=== PATIENT | male | born 1985 | race Caucasian/White ===

== ENCOUNTER 2021-01-24 22:39 | Emergency (ER) | payer OTHER ==
[2021-01-24 22:52] VITALS: RESP 18
--- NOTE | 2021-01-24 23:16 | ED ---
URI HPI - General Chief Complaint: Upper Respiratory Infection Stated Complaint: Chest Tightness Time Seen by Provider: 01/24/21 23:00 Source: patient, RN notes reviewed Mode of arrival: ambulatory Limitations: no limitations - History of Present Illness Initial Comments: Patient is a 35-year-old male that presents to emergency department complaining of upper respiratory tract symptoms past one. He notes that his daughter is Covid-positive and has gotten exposed. He noted that he was having cough congestion and some chest tightness and shortness of breath throughout the day today. Patient was otherwise well-appearing 35-year-old male in no apparent distress or pain. He denied any headache nausea vomiting diarrhea constipation fever fatigue chills. - Related Data Home Medications Medication Instructions Recorded Confirmed No Known Home Medications 01/24/21 01/24/21 Allergies Allergy/AdvReac Type Severity Reaction Status Date / Time No Known Allergies Allergy Verified 01/24/21 23:23 Review of Systems ROS Statement: Those systems with pertinent positive or pertinent negative responses have been documented in the HPI. ROS Other: All systems not noted in ROS Statement are negative. Past Medical History Past Medical History: No Reported History History of Any Multi-Drug Resistant Organisms: None Reported Past Surgical History: No Surgical Hx Reported Past Psychological History: No Psychological Hx Reported Smoking Status: Current every day smoker Past Alcohol Use History: None Reported Past Drug Use History: None Reported General Exam Limitations: no limitations General appearance: alert, in no apparent distress Head exam: Present: atraumatic, normocephalic, normal inspection Eye exam: Present: normal appearance, PERRL, EOMI. Absent: scleral icterus, conjunctival injection, periorbital swelling Neck exam: Present: normal inspection Respiratory exam: Present: normal lung sounds bilaterally. Absent: respiratory distress, wheezes, rales, rhonchi, stridor Cardiovascular Exam: Present: regular rate, normal rhythm, normal heart sounds. Absent: systolic murmur, diastolic murmur, rubs, gallop, clicks GI/Abdominal exam: Present: soft, normal bowel sounds. Absent: distended, t enderness, guarding, rebound, rigid Extremities exam: Present: normal inspection, full ROM, normal capillary refill. Absent: tenderness, pedal edema, joint swelling, calf tenderness Neurological exam: Present: alert, oriented X3 Psychiatric exam: Present: normal affect, normal mood Skin exam: Present: warm, dry, intact, normal color. Absent: rash Course Vital Signs 01/24/21 01/24/21 22:49 23:35 Temperature 99.5 F Pulse Rate 87 Respiratory 18 18 Rate Blood Pressure 128/77 O2 Sat by Pulse 99 Oximetry Medical Decision Making - Medical Decision Making 35-year-old male complaining of upper respiratory tract symptoms after being exposed to a Covid-positive person. Covid swab, chest x-ray ordered. Vital signs stable Patient did that he is not vaccinated for Covid Covid test positive. Chest x-ray negative for any acute cardiopulmonary process. Patient was informed that he meets criteria undergo monoclonal antibody infusion and wishes to go through with it. Case discussed with Dr. Villanueva, patient can discharge after IV infusion. - Lab Data Lab Results 01/24/21 Range/Units 23:24 Coronavirus (PCR) Detected A (Not Detectd) - Radiology Data Radiology results: report reviewed, image reviewed Chest x-ray: Normal chest. Disposition Clinical Impression: COVID Disposition: HOME SELF-CARE Condition: Stable Instructions (If sedation given, give patient instructions): Coronavirus Disease 2019 (COVID-19) Additional Instructions: Please return to the Emergency Department if symptoms worsen or any other concerns. Follow-up with primary care as soon as possible. Quarantine per CDC guidelines for the next 7-10 days. Take Tylenol and Motrin as needed for pain and/or fevers. Increase oral fluids. Get plenty rest. Is patient prescribed a controlled substance at d/c from ED?: No Referrals: Enrrique Nicholson DO [Primary Care Provider] - 1-2 days Time of Disposition: 23:52
--- NOTE | 2021-01-24 23:19 | XR ---
EXAMINATION TYPE: XR chest 2V DATE OF EXAM: 01/24/2021 COMPARISON: NONE HISTORY: Covid exposure. TECHNIQUE: 2 views FINDINGS: Heart and mediastinum are normal. Lungs are clear. Diaphragm is normal. Bony thorax appears normal. IMPRESSION: Normal chest.
[2021-01-24] MEDS ORDERED: CASIRIVIMAB (REGN10933) (EUA) 600 MG, IMDEVIMAB (REGN10987) (EUA) 600 MG in SODIUM CHLO... IVPB ONE (23:45)
[2021-01-24] MEDS ORDERED: SODIUM CHLORIDE 0.9% 50 ML IVPB ONE (23:45)
[2021-01-25 01:58] VITALS: BP 111/56; PULSE 76; TEMP 98.7
== END 2021-01-25 01:58 | disposition home or self-care (01) ==
LOC: EC 22:39
DX: U07.1 COVID-19 (principal); F17.200 Nicotine dependence, unspecified, uncomplicated
CPT/HCPCS: 87635; 71046; 99285; 96365; Q0243; 93005

== ENCOUNTER 2021-04-05 07:41 | Day surgery (SDC) | payer OTHER ==
[2021-04-04 08:22] VITALS: BMI 27.3
[~2021-04-05 07:41] MED LIST: DEXAMETHASONE SOD PHOSPHATE 4 MG/ML 1 ML VIAL IV ONE; HEPARIN SODIUM,PORCINE/PF 5,000 UNIT/0.5 ML SYRINGE SQ PRN; HYDROmorphone 0.5 MG/0.5 ML SYRINGE IVP PRN; LACTATED RINGERS 1,000 ML IV SCH; ONDANSETRON 4 MG/2 ML VIAL IVP ONE; Pre Op ABX Message 1 EACH MISC MISCELLANE ONE
[2021-04-05] MEDS ORDERED: ACETAMINOPHEN TAB 500 MG TAB PO STA (07:44)
[2021-04-05] MEDS ORDERED: GABAPENTIN 300 MG CAP PO STA (07:44)
--- NOTE | 2021-04-05 07:44 | P.GSHP ---
History of Present Illness H&P Date: 04/05/21 CHIEF COMPLAINT: Chest wall mass HISTORY OF PRESENT ILLNESS: The patient is a 35 year-old male with mass along the chest wall that is increasing in size and uncomfortable for over 1 year. He presents today for surgical excision. PAST MEDICAL HISTORY: Please see list. PAST SURGICAL HISTORY: Please see list. MEDICATIONS: Please see list. ALLERGIES: Please see list. SOCIAL HISTORY: No illicit drug use FAMILY HISTORY: No reports of Crohn disease or ulcerative colitis. REVIEW OF ORGAN SYSTEMS: CONSTITUTIONAL: No reports of fevers or chills. GI: Denies any blood in stools or constipation. PHYSICAL EXAM: VITAL SIGNS: Stable SKIN: Well perfused. Good skin turgor. 5 cm mass below the manubrium of the chest wall. Musculoskeletal: No clubbing cyanosis or edema GENERAL: Well developed and in no acute distress. Pleasant. HEENT: No sclera icterus. Extraocular movements grossly intact. Moist buccal mucosa. Head is atraumatic, normocephalic. Hears conversational speech. No nasal drainage. NECK: Supple without lymphadenopathy. No JV distention. CHEST: Non-labored respirations and equal bilateral excursions. CARDIOVASCULAR: Regular rate and rhythm. Palpable 2+ radial pulses. ABDOMEN: Soft. Non-tender. Nondistended. NEUROLOGIC: No focal or lateralizing signs. PSYCH: Appropriate affect. Alert and oriented to person, place and time. ASSESSMENT: 1. Mass along chest wall. PLAN: 1. Will proceed of excision of subcutaneous tumor along the chest wall 2. DVT prophylaxis. 3. Antibiotic prophylaxis. 4. Time of recovery, at least one week. Past Medical History Past Medical History: No Reported History Additional Past Medical History / Comment(s): chest wall mass History of Any Multi-Drug Resistant Organisms: None Reported Past Surgical History: No Surgical Hx Reported Past Anesthesia/Blood Transfusion Reactions: No Reported Reaction Smoking Status: Current every day smoker - Past Family History Mother Family Medical History: No Reported History Medications and Allergies Home Medications Medication Instructions Recorded Confirmed Type No Known Home Medications 01/24/21 04/04/21 History Allergies Allergy/AdvReac Type Severity Reaction Status Date / Time No Known Allergies Allergy Verified 04/04/21 08:18
[2021-04-05 08:42] LABS: Basophils % (A) 0 %; Eosinophils # (A) 0.3 k/uL (0-0.7); Eosinophils % (A) 3 %; HCT 45.5 % (39.0-53.0); HGB 15.4 gm/dL (13.0-17.5); Lymphocytes # (A) 1.3 k/uL (1.0-4.8); Lymphocytes % (A) 17 %; MCH 28.7 pg (25.0-35.0); MCHC 33.9 g/dL (31.0-37.0); MCV 84.6 fL (80.0-100.0); Mean Platelet Volume 7.5; Monocytes # (A) 0.2 k/uL (0-1.0); Monocytes % (A) 3 %; Neutrophils # (A) 5.7 k/uL (1.3-7.7); Neutrophils % (A) 75 %; Platelet Count 160 k/uL (150-450); RBC 5.37 m/uL (4.30-5.90); RDW 14.2 % (11.5-15.5); WBC 7.6 k/uL (3.8-10.6)
[2021-04-05] MEDS ORDERED: PROPOFOL 10 MG/ML 20 ML VIAL IV ONE (08:48)
[2021-04-05] MEDS ORDERED: LIDOCAINE 1% INJ 10MG/ML (20 ML MDV) ONE (08:48)
[2021-04-05] MEDS ORDERED: SUCCINYLCHOLINE CHLORIDE 100 MG/5 ML SYR IV ONE (08:48)
[2021-04-05] MEDS ORDERED: MIDAZOLAM 2 MG/2 ML VIAL ONE (08:48)
[2021-04-05] MEDS ORDERED: fentaNYL (PF) 50 MCG/ML 2 ML AMP ONE (08:48)
[2021-04-05] MEDS ORDERED: MELOXICAM 7.5 MG TAB PO SCH (09:00)
[2021-04-05] MEDS ORDERED: LIDOCAINE 1%-EPI 1:100,000 20 ML VIAL SQ ONE (09:20)
--- NOTE | 2021-04-05 10:24 | P.OP ---
Date of Procedure: 04/05/21 Operative Findings: SURGEON: RADHA BLEVINS MD MANAGER PROTEIN: None. PREOPERATIVE DIAGNOSES: 1. Upper chest wall mass 2. Tobacco abuse disorder POSTOPERATIVE DIAGNOSES: 1. Upper chest wall cystic mass, 6-cm 2. Tobacco abuse disorder PROCEDURES PERFORMED: 1. Excision of the subfascial upper chest wall mass, 8 x 6 cm 2. Intermediate closure of 8 cm along the chest wall. ANESTHESIA: GETA and local ESTIMATED BLOOD LOSS: 5 mL. SPECIMENS REMOVED: Chest wall mass, aerobic and anerobic cultures. COMPLICATIONS: None. FINDINGS: 1. Cystic chest wall extending to the below the fascia and jugular notch with purulent discharge. INDICATIONS: The patient is a 35-year-old male with painful and palpable tumor along the upper chest wall. He reports prior drainage with recurrence. Now he presents for surgical intervention. Benefits and risks of surgical intervention were described including bleeding, infection. Informed consent was obtained. DESCRIPTION OR PROCEDURE: Patient was brought into the operating room, laid in supine position. After general induction, the chest was prepped and draped in a standard sterile fashion with ChloraPrep. Timeout protocol was confirmed with the surgical team regarding the patient's name, procedure to be performed including preoperative medications. DVT prophylaxis was confirmed. A field block was placed of the upper chest wall inferior to the jugular notch. Indelible marker was placed around the upper chest lesion. A longitudinal incision using #15 blade was made along the marking into the dermis and subcutaneous tissue. Electro-Bovie cautery was used to excise the lesion down into the fascia and in a circumferential fashion. Purulent drainage was evacuated from the wound. The cystic wall was completely excised. The mass extending to the jugular notch where the insertion of bilateral sternocleidomastoid muscles were exposed. A 6 cm mass was excised with cultures obtained. The wound bed was cleaned with dilute hydroden peroxide. 0 Vicryl for the deep subcutaneous tissue followed by 3-0 Monocryl in a running subcuticular fashion was placed along the dermis. The skin was cleansed and Exofin tape was applied followed by Optifoam. Local anesthetic was placed. At the end of the procedure, needle, sponge, and instrument count was verified correct by assembler surgical garment. The patient was awoken and taken to the postanesthesia care unit in stable condition. The patient tolerated the procedure well. Plan - Discharge Summary Discharge Rx Participant: No New Discharge Prescriptions: New Ibuprofen [Motrin] 600 mg PO Q8HR PRN #30 tab PRN Reason: Pain Acetaminophen Tab [Tylenol Tab] 1,000 mg PO Q6HR PRN #30 tablet PRN Reason: Pain Discharge Medication List Acetaminophen Tab [Tylenol Tab] 1,000 mg PO Q6HR PRN #30 tablet 04/05/21 [Rx] Ibuprofen [Motrin] 600 mg PO Q8HR PRN #30 tab 04/05/21 [Rx] Follow up Appointment(s)/Referral(s): Radha Blevins MD [STAFF PHYSICIAN] - 04/09/21 Patient Instructions/Handouts: Dermal Cyst Excision (IP) Activity/Diet/Wound Care/Special Instructions: DO NOT REMOVE DRESSING. SEE INSTRUCTIONS ON DRESSING May shower but keep ALL DRESSINGS DRY. No bath tub soaks for two weeks until April 19 Diet as tolerated. Use Tylenol and ibuprofen or Aleve scheduled for the next 24-48 hours for best pain relief. May use ice along incisions for today to prevent swelling. Discharge Disposition: HOME SELF-CARE
[2021-04-05 10:29] VITALS: TEMP 97.4
[2021-04-05 11:35] VITALS: BP 143/79; PULSE 53; RESP 16
== END 2021-04-05 11:47 | disposition home or self-care (01) ==
LOC: OR 07:41
PROVIDERS: ATTEND Surgery Plastic and Reconstructive Surgery
DX: L72.0 Epidermal cyst (principal); F17.200 Nicotine dependence, unspecified, uncomplicated
CPT/HCPCS: 21552; 11400; 88304; 85025; 87070; 87205; 87075; J2250; J1100; J0690; J2405; J2001; J3010; J0330; J2704; J1644